=== PATIENT | female | born 1940 | race African-American/Black ===

== ENCOUNTER 2017-02-04 08:53 | Emergency (ER) | payer MEDICARE, OTHER ==
[~2017-02-04 08:53] MED LIST: ALBUTEROL0.63 MG/3 NEB; ALLERGY10 MG PO; AMITIZA8 MCG PO; COLACE100 MG PO; COUMADIN4 MG PO; LASIX40 MG PO; LAXATIVE OF CHOICE; LIPITOR10 MG PO; LORAZEPAM1 MG PO; MICON-GUARD 2%85 GM TOP; MICRO-K10 MEQ PO; NIFEDIPINE ER90 M1 PO; OS-CAL500 MG PO; OXY-IR 5MG5 MG PO; PRILOSEC20 MG PO; SINGULAIR10 MG PO; TYLENOL325 M1 PO; VENTOLIN HFA8 GM INH; ZESTRIL20 MG PO; [UNRECOGNIZED DRUG - OTHER] PO
[2017-03-18] MEDS ORDERED: PRINIVIL10 MG PO (12:44)
[2017-03-18] MEDS ORDERED: KLOR-CON M2020 MEQ PO (12:48)
[2017-03-18] MEDS ORDERED: REFRESH TEARS15 ML OU (12:48)
[2017-03-18] MEDS ORDERED: ALLEGRA ALLERG180 MG PO (12:49)
[2017-03-18] MEDS ORDERED: CELEXA20 MG PO (12:49)
[2017-03-18] MEDS ORDERED: DUONEB 2.5-0.5M1 AMP INH (12:49)
[2017-03-18] MEDS ORDERED: PULMICORT0.5 MG/2 M NEB (12:50)
[2017-03-18] MEDS ORDERED: MILK OF MA400 MG/5 M PO (12:50)
[2017-03-18] MEDS ORDERED: KLONOPIN0.5 MG PO (12:50)
[2017-03-18] MEDS ORDERED: ROBITUSSIN100 MG/5 M PO (12:51)
[2017-03-18] MEDS ORDERED: BACLOFEN 10MG T10 MG PO (12:51)
[2017-03-18] MEDS ORDERED: OCEAN37.5 ML (12:52)
[2017-03-18] MEDS ORDERED: TESSALON PERLE100 MG PO (12:52)
[2017-03-18] MEDS ORDERED: FLONASE ALLER15.8 ML (12:53)
[2017-03-18] MEDS ORDERED: PREDNISONE 10MG10 MG PO (12:55)
[2017-03-18] MEDS ORDERED: CARDIZEM CD240 MG PO (12:57)
[2017-03-18] MEDS ORDERED: TOPROL XL 50 MG50 MG PO (12:57)
[2017-03-18] MEDS ORDERED: LOVENOX40 MG/0.4 SQ (12:58)
[2017-03-18] MEDS ORDERED: COUMADIN2.5 MG PO (12:58)
[2017-03-18] MEDS ORDERED: VITAMIN B-121000 MC1 PO (14:36)
[2017-03-18] MEDS ORDERED: DRISDOL50000 UNIT PO (14:52)
[2017-06-03] MEDS ORDERED: KLONOPIN0.5 MG PO (13:40)
[2017-06-03] MEDS ORDERED: OXY-IR 5MG5 MG PO (13:40)
[2017-06-03] MEDS ORDERED: K-DUR20 MEQ PO (13:41)
[2017-06-03] MEDS ORDERED: COUMADIN2.5 MG PO (13:42)
[2017-06-03] MEDS ORDERED: PRINIVIL10 MG PO (13:42)
[2017-06-03] MEDS ORDERED: PROTONIX 40MG T40 MG PO (13:42)
[2017-06-03] MEDS ORDERED: DRISDOL50000 UNIT PO (13:43)
[2017-06-03] MEDS ORDERED: VITAMIN B-121000 MC1 PO (13:43)
[2017-06-03] MEDS ORDERED: CELEXA20 MG PO (13:44)
[2017-06-03] MEDS ORDERED: COLACE100 MG PO (13:44)
[2017-06-03] MEDS ORDERED: TOPROL XL 50 MG50 MG PO (13:44)
[2017-06-03] MEDS ORDERED: ALLEGRA ALLERG180 MG PO (13:45)
[2017-06-03] MEDS ORDERED: DUONEB 2.5-0.5M1 AMP NEB (13:45)
[2017-06-03] MEDS ORDERED: CARDIZEM CD120 MG PO (13:46)
[2017-06-03] MEDS ORDERED: LIPITOR 10MG TA10 MG PO (13:46)
[2017-06-03] MEDS ORDERED: PULMICORT0.5 MG/2 M NEB (13:46)
[2017-06-03] MEDS ORDERED: LINZESS290 MCG PO (13:47)
[2017-06-03] MEDS ORDERED: ROBITUSSIN100 MG/5 M PO (13:47)
[2017-06-03] MEDS ORDERED: XOPENEX (11.25 MG/3 NEB (13:48)
[2017-06-03] MEDS ORDERED: ATROVENT (00.2 MG/ML NEB (13:48)
[2017-06-03] MEDS ORDERED: FLONASE ALLER15.8 ML (13:48)
[2017-06-03] MEDS ORDERED: SINGULAIR10 MG PO (13:48)
[2017-06-03] MEDS ORDERED: REMERON15 MG PO (13:49)
[2017-06-03] MEDS ORDERED: BUMETANIDE2 MG PO (13:49)
[2017-06-03] MEDS ORDERED: NEURONTIN100 MG PO (13:49)
[2017-06-03] MEDS ORDERED: VIBRAMYCIN100 MG PO (13:50)
== END 2017-02-04 10:34 | disposition home or self-care (01) ==
LOC: FER 08:53
DX: M47.812 Spondylosis without myelopathy or radiculopathy, cervical region (principal); M81.0 Age-related osteoporosis without current pathological fracture; J44.9 Chronic obstructive pulmonary disease, unspecified; E11.9 Type 2 diabetes mellitus without complications; I10 Essential (primary) hypertension; Z88.0 Allergy status to penicillin; Z88.5 Allergy status to narcotic agent; Z88.8 Allergy status to other drugs, medicaments and biological substances
CPT/HCPCS: 72125

== ENCOUNTER 2017-04-30 02:36 | Emergency (ER) | payer MEDICARE, OTHER ==
[~2017-04-30 02:36] MED LIST changes: +ALLEGRA ALLERG180 MG PO; +BACLOFEN 10MG T10 MG PO; +CARDIZEM CD240 MG PO; +CELEXA20 MG PO; +COUMADIN2.5 MG PO; +DRISDOL50000 UNIT PO; +DUONEB 2.5-0.5M1 AMP INH; +FLONASE ALLER15.8 ML; +KLONOPIN0.5 MG PO; +KLOR-CON M2020 MEQ PO; +LOVENOX40 MG/0.4 SQ; +MILK OF MA400 MG/5 M PO; +OCEAN37.5 ML; +PREDNISONE 10MG10 MG PO; +PRINIVIL10 MG PO; +PULMICORT0.5 MG/2 M NEB; +REFRESH TEARS15 ML OU; +ROBITUSSIN100 MG/5 M PO; +TESSALON PERLE100 MG PO; +TOPROL XL 50 MG50 MG PO; +VITAMIN B-121000 MC1 PO
[2017-04-30 03:28] LABS: BASOPHIL 0.4 % (0-2); EOSINOPHIL 1.7 % (0-7); HCT 33.8 % (37.0-47.0); HGB 10.3 g/dl (12.5-16.0); LYMPHOCYTE 21.7 % (15-48); MCH 25.8 pg (25.0-31.0); MCHC 30.5 g/dL (32.0-36.0); MCV 84.5 fL (78.0-100.0); MONOCYTE 8.1 % (0-12); MPV 9.4 fL (6.0-9.5); NEUTROPHIL 68.1 % (41-80); PLT 312 K/uL (150-400); RDW 17.4 % (11.5-14.0); WBC 9.9 K/uL (4.0-10.5)
[2017-04-30 03:44] LABS: BILIRUBIN - TOTAL 0.6 mg/dL (0.1-1.0); CREATININE 1.9 mg/dL (0.5-1.0); POTASSIUM 5.1 mmol/L (3.5-5.1)
[2017-04-30 04:34] LABS: BILIRUBIN NEGATIVE (NEGATIVE); BLOOD NEGATIVE Ery/uL (NEGATIVE); CLARITY SLIGHTLY HAZY (CLEAR); COLOR YELLOW (YELLOW); GLUCOSE (U) NORMAL (NORMAL); KETONE (U) TRACE mg/dL (NEGATIVE); LEUKOCYTES NEGATIVE Leu/uL (NEGATIVE); NITRITE NEGATIVE (NEGATIVE); PROTEIN 2+ mg/dL (NEGATIVE); SPECIFIC GRAVITY >=1.030 (1.001-1.030); UROBILINOGEN 0.2 mg/dL (0.2-1.0)
[2017-04-30 04:39] LABS: AMORPHOUS URATES CRYSTALS MODERATE; BACTERIA TRACE; URINARY RBC RARE; URINARY WBC RARE
[2017-04-30 04:44] LABS: AMPHETAMINES NEGATIVE (NEGATIVE); BARBITURATES NEGATIVE (NEGATIVE); BENZODIAZEPINES NEGATIVE (NEGATIVE); COCAINE NEGATIVE (NEGATIVE); MARIJUANA (THC) POSITIVE (NEGATIVE); METHADONE POSITIVE (NEGATIVE); TRICYCLIC ANTIDEPRESSANT NEGATIVE (NEGATIVE)
[2017-06-03] MEDS ORDERED: OXY-IR 5MG5 MG PO (13:40)
[2017-06-03] MEDS ORDERED: KLONOPIN0.5 MG PO (13:40)
[2017-06-03] MEDS ORDERED: K-DUR20 MEQ PO (13:41)
[2017-06-03] MEDS ORDERED: COUMADIN2.5 MG PO (13:42)
[2017-06-03] MEDS ORDERED: PROTONIX 40MG T40 MG PO (13:42)
[2017-06-03] MEDS ORDERED: PRINIVIL10 MG PO (13:42)
[2017-06-03] MEDS ORDERED: DRISDOL50000 UNIT PO (13:43)
[2017-06-03] MEDS ORDERED: VITAMIN B-121000 MC1 PO (13:43)
[2017-06-03] MEDS ORDERED: CELEXA20 MG PO (13:44)
[2017-06-03] MEDS ORDERED: COLACE100 MG PO (13:44)
[2017-06-03] MEDS ORDERED: TOPROL XL 50 MG50 MG PO (13:44)
[2017-06-03] MEDS ORDERED: DUONEB 2.5-0.5M1 AMP NEB (13:45)
[2017-06-03] MEDS ORDERED: ALLEGRA ALLERG180 MG PO (13:45)
[2017-06-03] MEDS ORDERED: LIPITOR 10MG TA10 MG PO (13:46)
[2017-06-03] MEDS ORDERED: CARDIZEM CD120 MG PO (13:46)
[2017-06-03] MEDS ORDERED: PULMICORT0.5 MG/2 M NEB (13:46)
[2017-06-03] MEDS ORDERED: LINZESS290 MCG PO (13:47)
[2017-06-03] MEDS ORDERED: ROBITUSSIN100 MG/5 M PO (13:47)
[2017-06-03] MEDS ORDERED: SINGULAIR10 MG PO (13:48)
[2017-06-03] MEDS ORDERED: FLONASE ALLER15.8 ML (13:48)
[2017-06-03] MEDS ORDERED: XOPENEX (11.25 MG/3 NEB (13:48)
[2017-06-03] MEDS ORDERED: ATROVENT (00.2 MG/ML NEB (13:48)
[2017-06-03] MEDS ORDERED: REMERON15 MG PO (13:49)
[2017-06-03] MEDS ORDERED: NEURONTIN100 MG PO (13:49)
[2017-06-03] MEDS ORDERED: BUMETANIDE2 MG PO (13:49)
[2017-06-03] MEDS ORDERED: VIBRAMYCIN100 MG PO (13:50)
== END 2017-04-30 07:05 | disposition home or self-care (01) ==
LOC: FER 02:36
PROVIDERS: Emergency Medicine
DX: R41.82 Altered mental status, unspecified (principal); M54.2 Cervicalgia; F12.90 Cannabis use, unspecified, uncomplicated; F11.90 Opioid use, unspecified, uncomplicated
CPT/HCPCS: 36415; 70450; 71010; 80053; 80305; 81001; 82140; 84484; 85025

== ENCOUNTER 2017-05-04 13:28 | Emergency (ER) | payer MEDICARE, OTHER ==
[2017-05-04 14:56] LABS: BASOPHIL 0.1 % (0-2); EOSINOPHIL 0 % (0-7); HGB 10.7 g/dl (12.5-16.0); MCH 26.2 pg (25.0-31.0); MCHC 31.5 g/dL (32.0-36.0); MCV 83.1 fL (78.0-100.0); MONOCYTE 1.7 % (0-12); MPV 9.6 fL (6.0-9.5); NEUTROPHIL 86.2 % (41-80); PLT 321 K/uL (150-400); RBC 4.09 M/uL (4.20-5.40); RDW 18.2 % (11.5-14.0); WBC 9.7 K/uL (4.0-10.5)
[2017-05-04 15:15] LABS: ALBUMIN 3.3 g/dL (3.4-4.8); BILIRUBIN - TOTAL 0.9 mg/dL (0.1-1.0); CREATININE 1.1 mg/dL (0.5-1.0); GLOBULIN (CALCULATION) 3.1 g/dL (2.2-4.2); TOTAL PROTEIN 6.4 g/dL (6.4-8.3)
[2017-05-04 17:01] LABS: BILIRUBIN NEGATIVE (NEGATIVE); BLOOD TRACE-INTACT Ery/uL (NEGATIVE); CLARITY CLEAR (CLEAR); COLOR YELLOW (YELLOW); GLUCOSE (U) NORMAL (NORMAL); KETONE (U) NEGATIVE (NEGATIVE); LEUKOCYTES TRACE Leu/uL (NEGATIVE); NITRITE NEGATIVE (NEGATIVE); PROTEIN NEGATIVE (NEGATIVE); SPECIFIC GRAVITY 1.025 (1.001-1.030); UROBILINOGEN 0.2 mg/dL (0.2-1.0)
[2017-05-04 17:06] LABS: BACTERIA 1+; SQUAMOUS EPITHELIAL CELLS 20-50
[2017-05-04 17:12] LABS: AMPHETAMINES NEGATIVE (NEGATIVE); BENZODIAZEPINES NEGATIVE (NEGATIVE); COCAINE NEGATIVE (NEGATIVE); MARIJUANA (THC) POSITIVE (NEGATIVE)
[2017-05-04 17:13] LABS: BARBITURATES NEGATIVE (NEGATIVE); METHADONE POSITIVE (NEGATIVE); TRICYCLIC ANTIDEPRESSANT NEGATIVE (NEGATIVE)
[2017-06-03] MEDS ORDERED: OXY-IR 5MG5 MG PO (13:40)
[2017-06-03] MEDS ORDERED: KLONOPIN0.5 MG PO (13:40)
[2017-06-03] MEDS ORDERED: K-DUR20 MEQ PO (13:41)
[2017-06-03] MEDS ORDERED: COUMADIN2.5 MG PO (13:42)
[2017-06-03] MEDS ORDERED: PROTONIX 40MG T40 MG PO (13:42)
[2017-06-03] MEDS ORDERED: PRINIVIL10 MG PO (13:42)
[2017-06-03] MEDS ORDERED: DRISDOL50000 UNIT PO (13:43)
[2017-06-03] MEDS ORDERED: VITAMIN B-121000 MC1 PO (13:43)
[2017-06-03] MEDS ORDERED: TOPROL XL 50 MG50 MG PO (13:44)
[2017-06-03] MEDS ORDERED: COLACE100 MG PO (13:44)
[2017-06-03] MEDS ORDERED: CELEXA20 MG PO (13:44)
[2017-06-03] MEDS ORDERED: DUONEB 2.5-0.5M1 AMP NEB (13:45)
[2017-06-03] MEDS ORDERED: ALLEGRA ALLERG180 MG PO (13:45)
[2017-06-03] MEDS ORDERED: PULMICORT0.5 MG/2 M NEB (13:46)
[2017-06-03] MEDS ORDERED: LIPITOR 10MG TA10 MG PO (13:46)
[2017-06-03] MEDS ORDERED: CARDIZEM CD120 MG PO (13:46)
[2017-06-03] MEDS ORDERED: LINZESS290 MCG PO (13:47)
[2017-06-03] MEDS ORDERED: ROBITUSSIN100 MG/5 M PO (13:47)
[2017-06-03] MEDS ORDERED: FLONASE ALLER15.8 ML (13:48)
[2017-06-03] MEDS ORDERED: SINGULAIR10 MG PO (13:48)
[2017-06-03] MEDS ORDERED: ATROVENT (00.2 MG/ML NEB (13:48)
[2017-06-03] MEDS ORDERED: XOPENEX (11.25 MG/3 NEB (13:48)
[2017-06-03] MEDS ORDERED: BUMETANIDE2 MG PO (13:49)
[2017-06-03] MEDS ORDERED: REMERON15 MG PO (13:49)
[2017-06-03] MEDS ORDERED: NEURONTIN100 MG PO (13:49)
[2017-06-03] MEDS ORDERED: VIBRAMYCIN100 MG PO (13:50)
== END 2017-05-04 19:17 | disposition home or self-care (01) ==
LOC: FER 13:28
PROVIDERS: Nurse Practitioner
DX: J18.9 Pneumonia, unspecified organism (principal); M19.90 Unspecified osteoarthritis, unspecified site; Z99.81 Dependence on supplemental oxygen; Z88.0 Allergy status to penicillin; Z88.5 Allergy status to narcotic agent; Z88.8 Allergy status to other drugs, medicaments and biological substances
CPT/HCPCS: 36415; 36600; 71020; 80053; 80305; 81001; 82803; 83880; 85025; 94640; J0456; J2930

== ENCOUNTER 2017-07-14 17:48 | Day surgery (SDCO) | payer MEDICARE, OTHER ==
[~2017-07-14] VITALS: Ht 157.5 cm; Wt 100.0 kg
[~2017-07-14 17:48] MED LIST changes: +ATROVENT (00.2 MG/ML NEB; +BUMETANIDE2 MG PO; +CARDIZEM CD120 MG PO; +DUONEB 2.5-0.5M1 AMP NEB; +K-DUR20 MEQ PO; +LINZESS290 MCG PO; +LIPITOR 10MG TA10 MG PO; +NEURONTIN100 MG PO; +PROTONIX 40MG T40 MG PO; +REMERON15 MG PO; +VIBRAMYCIN100 MG PO; +XOPENEX (11.25 MG/3 NEB
[2017-07-14 18:32] LABS: BASOPHIL 0.2 % (0-2); EOSINOPHIL 1.3 % (0-7); HCT 32.3 % (37.0-47.0); HGB 9.4 g/dl (12.5-16.0); MCH 25.9 pg (25.0-31.0); MCHC 29.1 g/dL (32.0-36.0); MONOCYTE 10.6 % (0-12); MPV 9.6 fL (6.0-9.5); NEUTROPHIL 70.9 % (41-80); PLT 382 K/uL (150-400); RBC 3.63 M/uL (4.20-5.40); RDW 14.8 % (11.5-14.0); WBC 13.1 K/uL (4.0-10.5)
[2017-07-14 18:50] LABS: LACTIC ACID 0.7 mmol/L (0.5-2.2)
[2017-07-14 18:54] LABS: ALBUMIN 2.6 g/dL (3.4-4.8); BILIRUBIN - TOTAL 0.7 mg/dL (0.1-1.0); CREATININE 0.8 mg/dL (0.5-1.0); POTASSIUM 4.6 mmol/L (3.5-5.1); TOTAL PROTEIN 6.6 g/dL (6.4-8.3)
[2017-07-14 22:06] LABS: INR 1.56 (0.9-1.2); PROTHROMBIN TIME 17.7 SECONDS (11.4-13.2)
[2017-07-14 22:13] LABS: MAGNESIUM 1.87 mg/dL (1.40-2.10)
[2017-07-14 22:19] LABS: TROPONIN T < 0.010 ng/mL
[2017-07-14 22:23] LABS: PRO-BNP 973 pg/mL (0-450)
[2017-07-15 01:27] LABS: BILIRUBIN NEGATIVE (NEGATIVE); BLOOD NEGATIVE Ery/uL (NEGATIVE); CLARITY CLEAR (CLEAR); COLOR YELLOW (YELLOW); GLUCOSE (U) NORMAL (NORMAL); KETONE (U) NEGATIVE (NEGATIVE); LEUKOCYTES NEGATIVE Leu/uL (NEGATIVE); NITRITE NEGATIVE (NEGATIVE); PROTEIN NEGATIVE (NEGATIVE); UROBILINOGEN 0.2 mg/dL (0.2-1.0); pH 5.5 (5.0-9.0)
[2017-07-15 01:29] LABS: SQUAMOUS EPITHELIAL CELLS RARE
[2017-07-15 03:55] LABS: HCT 32.6 % (37.0-47.0); HGB 9.4 g/dl (12.5-16.0); MCH 25.7 pg (25.0-31.0); MCHC 28.8 g/dL (32.0-36.0); MCV 89.1 fL (78.0-100.0); MPV 9.6 fL (6.0-9.5); RBC 3.66 M/uL (4.20-5.40); RDW 14.9 % (11.5-14.0)
[2017-07-15 04:02] LABS: INR 1.84 (0.9-1.2); PROTHROMBIN TIME 20.2 SECONDS (11.4-13.2)
[2017-07-15 04:09] LABS: CREATININE 0.9 mg/dL (0.5-1.0); POTASSIUM 4.3 mmol/L (3.5-5.1)
[2017-07-15 04:11] LABS: TROPONIN T < 0.010 ng/mL
[2017-07-15 04:17] LABS: WBC 12.2 K/uL (4.0-10.5)
[2017-07-16 06:03] LABS: HGB 8.9 g/dl (12.5-16.0); MCH 25.5 pg (25.0-31.0); MCHC 28.7 g/dL (32.0-36.0); MCV 88.8 fL (78.0-100.0); MPV 9.5 fL (6.0-9.5); RBC 3.49 M/uL (4.20-5.40); RDW 14.9 % (11.5-14.0)
[2017-07-16 06:18] LABS: INR 1.86 (0.9-1.2); PROTHROMBIN TIME 20.4 SECONDS (11.4-13.2)
[2017-07-16 06:23] LABS: ALBUMIN 2.6 g/dL (3.4-4.8); BILIRUBIN - TOTAL 0.8 mg/dL (0.1-1.0); CREATININE 1.5 mg/dL (0.5-1.0); GLOBULIN (CALCULATION) 4.1 g/dL (2.2-4.2); POTASSIUM 4.1 mmol/L (3.5-5.1); TOTAL PROTEIN 6.7 g/dL (6.4-8.3)
[2017-07-16 06:32] LABS: FT4 (FREE T4) 1.15 ng/dL (0.93-1.70); TSH (THYROID STIM HORMONE) 0.199 uIU/mL (0.270-4.200)
[2017-07-17 05:34] LABS: BASOPHIL 0.4 % (0-2); EOSINOPHIL 4.7 % (0-7); HCT 31.4 % (37.0-47.0); LYMPHOCYTE 27.4 % (15-48); MCH 25.6 pg (25.0-31.0); MCHC 28.7 g/dL (32.0-36.0); MCV 89.5 fL (78.0-100.0); MONOCYTE 7.3 % (0-12); MPV 9.8 fL (6.0-9.5); NEUTROPHIL 60.2 % (41-80); PLT 429 K/uL (150-400); RBC 3.51 M/uL (4.20-5.40); RDW 14.9 % (11.5-14.0); WBC 11.2 K/uL (4.0-10.5)
[2017-07-17 05:49] LABS: INR 1.82 (0.9-1.2)
[2017-07-17 06:01] LABS: ALBUMIN 2.7 g/dL (3.4-4.8); BILIRUBIN - TOTAL 0.6 mg/dL (0.1-1.0); CREATININE 1.4 mg/dL (0.5-1.0); MAGNESIUM 2.02 mg/dL (1.40-2.10); POTASSIUM 4.5 mmol/L (3.5-5.1); TOTAL PROTEIN 6.7 g/dL (6.4-8.3)
[2017-07-18 06:04] LABS: BASOPHIL 0.4 % (0-2); EOSINOPHIL 4.9 % (0-7); HCT 30.2 % (37.0-47.0); HGB 8.6 g/dl (12.5-16.0); LYMPHOCYTE 27.3 % (15-48); MCH 25.6 pg (25.0-31.0); MCHC 28.5 g/dL (32.0-36.0); MCV 89.9 fL (78.0-100.0); MONOCYTE 7.6 % (0-12); MPV 9.2 fL (6.0-9.5); NEUTROPHIL 59.8 % (41-80); PLT 406 K/uL (150-400); RBC 3.36 M/uL (4.20-5.40); RDW 14.9 % (11.5-14.0); WBC 9.8 K/uL (4.0-10.5)
[2017-07-18 06:22] LABS: ALBUMIN 2.5 g/dL (3.4-4.8); BILIRUBIN - TOTAL 0.5 mg/dL (0.1-1.0); CREATININE 1.5 mg/dL (0.5-1.0); GLOBULIN (CALCULATION) 3.4 g/dL (2.2-4.2); MAGNESIUM 1.91 mg/dL (1.40-2.10); POTASSIUM 5.1 mmol/L (3.5-5.1); TOTAL PROTEIN 5.9 g/dL (6.4-8.3)
== END 2017-07-18 14:24 ==
LOC: FER 17:48 → FTCU 19:45 → FMS 19:45
PROVIDERS: Internal Medicine; Nurse Practitioner; ADMIT Internal Medicine
DX: I11.0 Hypertensive heart disease with heart failure (principal); I50.33 Acute on chronic diastolic (congestive) heart failure; I82.621 Acute embolism and thrombosis of deep veins of right upper extremity; E03.9 Hypothyroidism, unspecified; E11.9 Type 2 diabetes mellitus without complications; F41.1 Generalized anxiety disorder; F32.9 Major depressive disorder, single episode, unspecified; J96.10 Chronic respiratory failure, unspecified whether with hypoxia or hypercapnia; J44.9 Chronic obstructive pulmonary disease, unspecified; Z87.01 Personal history of pneumonia (recurrent); Z99.81 Dependence on supplemental oxygen; Z90.49 Acquired absence of other specified parts of digestive tract; Z90.710 Acquired absence of both cervix and uterus; Z88.5 Allergy status to narcotic agent; Z88.0 Allergy status to penicillin; Z79.01 Long term (current) use of anticoagulants; Z79.899 Other long term (current) drug therapy
CPT/HCPCS: 36415; 71010; 71250; 76536; 80048; 80053; 81001; 82550; 82553; 82607; 82746; 82962; 83036; 83540; 83550; 83605; 83735; 83880; 84439; 84443; 84484; 85025; 85610; 87040; 93005; 94010; 94640; 94760; 97163; 97167; 97530; 97530-GP; 97535; G0378; J1885; J2916